=== PATIENT | female | born 1980 | race Caucasian/White ===

== ENCOUNTER 2023-03-22 14:22 | Outpatient (REF) | payer MEDICAID, SELFPAY ==
--- NOTE | ~2023-03-22 | CT_ITS ---
EXAMINATION: CT ABDOMEN AND PELVIS WITH CONTRAST CLINICAL INFORMATION: Right lower quadrant pain. COMPARISON: None available. TECHNIQUE: Multidetector volumetric images were obtained from the superior aspect of the liver through the pubic symphysis following administration 85 mL of Omnipaque 350 intravenous contrast. Sagittal and coronal reformatted images were obtained on the technologist's workstation. Oral contrast: No This CT examination was performed using dose optimization techniques as appropriate, variously including the following: *Automated exposure control *Adjustment of mA and/or kV according to patient size (this includes techniques or standardized protocols for targeted exams where dose is matched to indication/reason for exam; i.e. extremities or head) *Use of iterative reconstruction technique DLP: 368 mGy-cm FINDINGS: LUNG BASES: The visualized lung bases are unremarkable. LIVER, GALLBLADDER, AND BILIARY TREE: The liver is normal in size, shape, and attenuation. No focal hepatic lesion or biliary ductal dilatation is present. The gallbladder is unremarkable with no evidence of radiopaque gallstones, gallbladder wall thickening, or obvious pericholecystic inflammatory changes. PANCREAS: Unremarkable. SPLEEN: Unremarkable. ADRENAL GLANDS: Unremarkable. KIDNEYS AND URETERS: The kidneys are normal in size, shape, and attenuation. 2.3 cm posterior right renal cyst. No further imaging follow-up is needed. No hydronephrosis or perinephric stranding. BLADDER: Unremarkable. GASTROINTESTINAL TRACT: Small hiatal hernia. Small and large bowel loops are of normal caliber. No evidence of small bowel obstruction. ABDOMINAL WALL: Tiny fat-containing umbilical hernia. LYMPH NODES: No bulky abdominal or pelvic lymphadenopathy. VASCULAR: Normal caliber abdominal aorta. PELVIC VISCERA: The uterus and adnexa are unremarkable. OSSEOUS STRUCTURES: No destructive bone lesions. CT/CT abdomen pelvis w IV con IMPRESSION: No acute abnormality in the abdomen or pelvis.
[2023-03-22] MEDS: iohexoL 350 MG/ML 100 ML INFUS..BTL IV (15:21)
== END 2023-03-22 14:23 | disposition home or self-care (01) ==
LOC: HO.CT 14:22
PROVIDERS: Visit Provider Family Medicine
DX: R10.31 Right lower quadrant pain (principal)
CPT/HCPCS: 74177; Q9967

== ENCOUNTER 2023-09-21 11:38 | Outpatient (REF) | payer MEDICAID, SELFPAY | END 2023-09-21 11:39 | disposition home or self-care (01) | LOC: HO.CHCLNP 11:38 | PROVIDERS: Visit Provider Pediatrics | DX: N61.1 Abscess of the breast and nipple (principal); E78.5 Hyperlipidemia, unspecified | CPT/HCPCS: 87070; 87077; 87186; 87205 ==

== ENCOUNTER 2025-03-20 16:28 | Outpatient (REF) | payer MEDICAID, SELFPAY ==
--- OUTSIDE RECORDS SUMMARY | 2025-03-20 16:00 | XMS_ITS | Encounter Summary ---
Author Organization [employer] Address [address] [facility] 7t [place] [address] Care Team Providers Care Heating And Ventilating Tender Name Role Phone Rebeca Panchal MD Primary Care Provider [phone] Reason for Visit * Reason Comments Right lower limb pain Encounter Details Date Type Department Care Team ([facility] st Contact Info) Description 03/20/2025 4:00 PM EDT Office Visit [facility] P[facility]S [address] [place] [address] Tasia Rider MD [address] [place] [address] Right leg pain (Primary Dx) Social History Tobacco Use Types Packs/Day Years Used Date Smoking Tobacco: Never Passive Smoke Exposure: Never Smokeless Tobacco: Never Alcohol Use Standard Drinks/Week Comments Defer 0 (1 standard drink = 0.6 oz pur e alcohol) Depression Answer Date Recorded Patient Health Questionnaire-9 Score 2 10/10/2024 Patient Health Questionnaire-9 Score 2 10/10/2024 Last PHQ-9: Questionnaire Data Not on file 0 10/10/2024 Housing Stability Answer Date Recorded What is your housing situation today? I have sherita tamayo 10/02/[address] you li ve. Do you have problems with any of the following? None of the above 10/02/2024 Food Insecurity Answer Date Recorded Within the past 12 months, y ou worried that your food would run out before you got money to buy more: Never True 10/02/2024 Within the past 12 months,th e food you bought just didn't last and you didn't have enough money to get more: Never True 03/2025 Transportation Answer Date Recorded In the past 12 months, has l ack of transportation kept you from medical appts, meetings, work or from getting things needed for daily living? No 10/02/2024 Utilities Answer Date Recorded In the past 12 months, has t he electric, gas, oil or water company threatened to shut off services in your home? No 10/02/2024 Depression Answer Date Recorded Patient Health Questionnaire-2 Score 0 10/10/2024 Internet Access Answer Date Recorded Internet Access Q1 Yes 10/02/2024 Internet Access Q2 Not on file 10/02/2024 Comments No Sex and Gender Information Value Date Recorded Sex Assigned at Female 04/24/2022 10:18 AM EDT Legal Sex Female 10:18 AM EDT Gender Identity Female 04/24/2022 10:18 AM EDT Sexual Orientation Straight 04/24/2022 10 :18 AM EDT documented as of this encounter Last Filed Vital Signs Vital Sign Reading Time Taken Comments Blood Pressure 102/70 03/20/2025 4:06 PM EDT Pulse 72 03/20/2025 4:06 PM EDT Temperature 36.8 C (98.3 F) 03/20/2025 4:06 PM EDT Respiratory Rate 16 03/20/2025 4:06 PM EDT Oxygen Saturation - - Inhaled Oxygen Concentration - - Weight 78 kg (172 lb) 03/20/2025 4:06 PM EDT Height - - Body Mass Index 28.62 01/23/2025 9:00 AM EDT documented in this encounter Plan of Treatment Scheduled Orders Name Type Priority Associated Diagnoses Orde r Schedule CBC auto differential Lab Routine Right leg pain Expected: 03/20/2025 (Approximate), Expires: 03/20/2026 D Dimer High Sensitivity Lab Routine Right leg pain Expected: 03/20/2025, Expires: 03/20/2026 Basic Metabolic Panel Lab Routine Right leg pain Expected: 03/20/2025 (Approximate), Expires: 03/20/2026 documented as of this encounter Visit Diagnoses Diagnosis Right leg pain- Primary Pain in soft tissues of limb documented in this encounter Additional Health Concerns Assessment Noted Time PHQ-9 Depression Total Score: 2 10/11/19 25 10:14 AM EDT documented as of this encounter Care Teams Heating And Ventilating Tender Relationship Specialty Start Date End Date Rebeca Panchal MD [address] [place] [phone] PCP - General Family Medicine 06/25/18 documented as of this encounter
--- OUTSIDE RECORDS SUMMARY | 2025-03-20 16:31 | XMS_ITS | Patient Health Record ---
Author Organization [facility] Address [address] [place] [id number] Care Team Providers Care Report Writer Name Role Phone Elroy Damon Unavailable [phone] Reason For Referral No Information Plan Of Treatment No Information
--- OUTSIDE RECORDS SUMMARY | 2025-03-20 16:31 | XMS_ITS | Encounter Summary ---
Author Organization [employer] Address [address] [facility] 7t [place] [address] Care Team Providers Care Belt Sander Name Role Phone Rebeca Panchal MD Primary Care Provider [phone] Reason for Visit * Reason Onset Date Comments Med Refill 09/12/2023 Encounter Details Date Type Department Care Team ([facility] st Contact Info) Description 09/12/2023 Telephone [facility] MEDICINE [address] [place] [address] Rebeca Panchal MD [address] [place] [address] Med Refill Social History Tobacco Use Types Packs/Day Years Used Date Smoking Tobacco: Never Passive Smoke Exposure: Never Smokeless Tobacco: Never Alcohol Use Standard Drinks/Week Comments Defer 0 (1 standard drink = 0.6 oz pur e alcohol) Depression Answer Date Recorded Patient Health Questionnaire-9 Score 0 2022 Housing Stability Answer Date Recorded What is your housing situation today? I have sheritanikunj tamayo 04/17/[address] you li ve. Do you have problems with any of the following? None of the above 04/17/2023 Food Insecurity Answer Date Recorded Within the past 12 months, y ou worried that your food would run out before you got money to buy more: Never True 04/17/2023 Within the past 12 months,th e food you bought just didn't last and you didn't have enough money to get more: Never True Transportation Answer Date Recorded In the past 12 months, has l ack of transportation kept you from medical appts, meetings, work or from getting things needed for daily living? No 04/17/2023 Utilities Answer Date Recorded In the past 12 months, has t he electric, gas, oil or water company threatened to shut off services in your home? No 04/17/2023 Depression Answer Date Recorded Patient Health Questionnaire-2 Score 0 2022 Comments Unknown Sex and Gender Information Value Date Recorded Sex Assigned at Female 04/24/2022 10:18 AM EDT Legal Sex Female 10:18 AM EDT Gender Identity Female 04/24/2022 10:18 AM EDT Sexual Orientation Straight 04/24/2022 10 :18 AM EDT documented as of this encounter Miscellaneous Notes * Telephone Encounter - Tessie Rausch - 09/12/2023 8:55 AM EDT TC from pt requesting medication refill. Medications needing refill : Albuterol solution (Bench Loom Weaver don't see med on med list) To be sent to: [facility]/pharmacy #[id number] [place], [place] - [address] [facility] documented in this encounter Plan of Treatment Not on file documented as of this encounter Visit Diagnoses Not on filedocumented in this encounter Additional Health Concerns Assessment Noted Time PHQ-9 Depression Total Score: 0 12/15/19 23 9:26 AM EDT documented as of this encounter Care Teams Belt Sander Relationship Specialty Start Date End Date Rebeca Panchal MD [address] [place] [phone] PCP - General Family Medicine 06/25/18 documented as of this encounter
--- OUTSIDE RECORDS SUMMARY | 2025-03-20 16:31 | XMS_ITS | Clinical Summary ---
Author Organization [employer] Address [address] [facility] 7t [place] [address] Care Team Providers Care Medical Language Specialist Name Role Phone Rebeca Panchal MD Primary Care Provider [phone] Allergies No known active allergies Medications omega-3 1000 MG capsule capsuleIndications :Combined hyperlipidemia TAKE 1 CAPSULE BY MOUTH TWICE A DAY (OTC NOT COVERED) 60 capsule 11 07/27/19 23 Active celecoxib (CeleBREX) 200 MG capsuleIndications :Acute pain of left shoulder TAKE 1 CAPSULE BY MOUTH 2 TIMES DAILY. 60 capsule 3 03/17/20 24 Active cetirizine (ZyrTEC) 10 MG tabletIndications: Mild persistent asthma without complication Take 1 tablet (10 mg) by mouth in the morning. 90 tablet 3 10/11/19 25 Active albuterol (2.5 MG/3ML) 0.083% nebulizer solutionIndication s:Mild persistent asthma without complication Take 3 mL (2.5 mg) by nebulization every 6 (six) hours if needed for wheezing. 75 mL 1 10/11/19 25 026 Active fluticasone (Flonase) 50 MCG/ACT nasal sprayIndications:M ild persistent asthma without complication Administer 1-2 sprays into each nostril Once per day. 16 g 3 10/11/19 25 026 Active ergocalciferol (Vitamin D2) 1.25 MG (49657 UT) capsule Take 1 capsule (1.25 mg) by mouth 1 (one) time per week. 15 capsule 10/20/19 25 Active butalbital-acetami nophen-caffeine 50-325-40 MG tablet take 1 tab every 8 hrs as needed 20 tablet 2 10/24/19 25 Active Ventolin HFA 108 (90 Base) MCG/ACT inhalerIndications :Mild persistent asthma without complication INHALE 1 PUFF EVERY 6 HOURS NEEDED FOR WHEEZE 18 g 1 12/18/19 25 Active ergocalciferol (Vitamin D2) 1.25 MG (94392 UT) capsule Take 1 capsule (1.25 mg) by mouth 1 (one) time per week. 15 capsule 01/14/20 25 Active omega-3 (Fish Oil) 1000 MG capsule Take 1 capsule (1,000 mg) by mouth Once per day. 90 capsule 3 01/14/20 25 Active Active Problems Problem Noted Date Diagnosed Date Mild persistent asthma without complication 05/25 Thyroid nodule 04/29/2019 Migraine 11/12/2012 Encounters Date Type Department Care Team Description 03/20/2025 4:00 PM EDT Office Visit [facility] MED & PEDS [address] [place] [address] Tsaia Rider MD Right leg pain (Primary Dx) 03/20/2025 Travel 03/18/2025 Telephone [facility] MEDICINE [address] [place] [address] Rebeca Panchal MD Nurse Triage 03/03/2025 Telephone [facility] MED & PEDS [address] [place] [address] Rebeca Panchal MD 02/12/2025 Orders Only [facility] MED & PEDS [address] [place] [address] Rebeca Panchal MD Screening for colon cancer (Primary Dx) 01/23/2025 9:00 AM EDT Procedure Visit [facility] [address] [place] [address] Karyna Liu MD Chronic left shoulder pain (Primary Dx) 01/23/2025 Travel 01/13/2025 9:45 AM EDT Office Visit [facility] MED [facility] PEDS [address] [place] [address] Rebeca Panchal MD Dyslipidemia (Primary Dx); Vitamin D deficiency; Screening for colon cancer 01/13/2025 Travel 01/12/2025 Telephone [facility] MED & PEDS [address] [place] [address] Rebeca Panchal MD Chart Prep from Last 3 Months Immunizations Immunization Administration Dates Next Due Hep B, adult 03/19/2008,09/16/2007,07/18/2007 Influenza Whole 06/08/2009 Tdap 04/29/2019,11/14/2009 Social History Tobacco Use Types Packs/Day Years Used Date Smoking Tobacco: Never Passive Smoke Exposure: Never Smokeless Tobacco: Never Tobacco Cessation:Counseling Given: Not Answered Alcohol Use Standard Drinks/Week Comments Defer 0 [...] Orientation Straight 04/24/2022 10 :18 AM EDT Last Filed Vital Signs Vital Sign Reading Time Taken Comments Blood Pressure 102/70 03/20/2025 4:06 PM EDT Pulse 72 03/20/2025 4:06 PM EDT Temperature 36.8 C (98.3 F) 03/20/2025 4:06 PM EDT Respiratory Rate 16 03/20/2025 4:06 PM EDT Oxygen Saturation 98% 01/13/2025 9:46 AM EDT Inhaled Oxygen Concentration - - Weight 78 kg (172 lb) 03/20/2025 4:06 PM EDT Height 165.1 cm (5' 5 ) 01/23/2025 9:00 AM EDT Body Mass Index 28.62 01/23/2025 9:00 AM EDT Plan of Treatment Health Maintenance Due Date Last Done Comments CT Colonography 1978 Colonoscopy 1978 Colorectal Cancer Screening 1978 FIT DNA/Cologuard 1978 FIT 1978 FOBT 1978 HIV Screening 1978 Sigmoidoscopy 1978 Family Planning (PISQ) 1993 Hepatitis C Screening 1996 Pneumococcal Vaccine: Pediatrics (0 to 5 Years) and At-Risk Patients (6 to 49) Years (1 of 2 - PCV) 1997 Pap Smear 12/15/1999 HPV/Cotest 2008 Mammogram 2018 COVID-19 Vaccine ( - 2024-2 6 season) 2025 05/13/2022, 08/17/2021, 09/28/2020 Influenza Vaccine (#1) 2025 06/08/2009 SDOH Screening 10/02/2025 10/02/2024 Alcohol/Substance Use Screening 10/10/2025 10/10/2024 Depression Screening 10/10/2025 10/10/2024, 10/10/2024 Disability Screening 10/10/2025 10/10/2024 Tobacco Screening 01/13/2026 01/13/2025 Cervical Cancer Screening 12/22/2026 Po stponed from 2008 (Other System Reasons) Zoster Vaccines (1 of 2) 2028 DTaP/Tdap/Td Vaccines (3 - T d or Tdap) 04/29/2029 04/29/2019, 11/14/2009 RSV Patients and Patients Aged 60 years or older (1 - 1-dose 75+ series) 2053 Hepatitis B Vaccines Completed 03/19/2008, 09/16/2007, 07/18/2007 HIB Vaccines Aged Out No longer eligi ble based on patient's age to complete this topic HPV Vaccines Aged Out No longer eligi ble based on patient's age to complete this topic Hepatitis A Vaccines Aged Out No long er eligible based on patient's age to complete this topic IPV Vaccines Aged Out No longer eligi ble based on patient's age to complete this topic Meningococcal B Vaccine Aged Out No l onger eligible based on patient's age to complete this topic Meningococcal Vaccine Aged Out No demetria monse eligible based on patient's age to complete this topic RSV under 20 months Aged Out No longe r eligible based on patient's age to complete this topic Rotavirus Vaccines Aged Out No longer eligible based on patient's age to complete this topic Procedures Procedure Name Priority Date/Time Associated Diagnosis Comments [place] ARTHROCENTESIS ASPIR&/INJ MAJOR JT/BURSA W/O US Routine 01/23/2025 9:15 AM EDT Chronic left shoulder pain from Last 3 Months Results * [place] ARTHROCENTESIS ASPIR&/INJ MAJOR JT/BURSA W/O US (01/23/2025 9:15 AM EDT) Narrative Karyna Liu MD - 01/23/2025 9:15 AM EDT Karyna Liu MD 01/23/2025 9:18 AM Arthrocentesis Date/Time: 01/23/2025 9:15 AM Performed by: Karyna Liu MD Authorized by: Karyna Liu MD Consent: Consent obtained: Written Consent given by: Patient Risks, benefits, and alternatives were discussed: yes Risks discussed: Pain Alternatives discussed: Referral Hickman protocol: Procedure explained and questions answered to patient or proxy's satisfaction: yes Relevant documents present and verified: yes Test results available: yes Imaging studies available: yes Required blood products, implants, devices, and special equipment available: yes Site/side marked: yes Immediately prior to procedure, a time out was called: yes Patient identity confirmed: Verbally with patient Location: Location: Shoulder Shoulder: L glenohumeral Anesthesia: Anesthesia method: Topical application Procedure details: Preparation: Patient was prepped and draped in usual sterile fashion Needle gauge: 22 G Ultrasound guidance: no Approach: Posterior Steroid injected: yes Specimen collected: no Post-procedure details: Dressing: Adhesive bandage Procedure completion: Tolerated Karyna Liu MD IN CLINIC/BEDSIDE ORDERABLES Fin al Result from Last 3 Months Insurance C3 GENERIC TPL Care Teams Medical Language Specialist Relationship Specialty Start Date End Date Rebeca Panchal MD [address] [place] [id number] PCP - General Family Medicine 06/25/18
--- OUTSIDE RECORDS SUMMARY | 2025-03-20 16:31 | XMS_ITS | Encounter Summary ---
Author Organization [employer] Address [address] [facility] 7t [place] [address] Care Team Providers Care Exercise Physiologist Certified Name Role Phone Rebeca Panchal MD Primary Care Provider [phone] Reason for Visit * Reason Onset Date Comments Nurse Triage 03/18/2025 Encounter Details Date Type Department Care Team ([facility] st Contact Info) Description 03/18/2025 Telephone [facility] MEDICINE [address] [place] [address] Rebeca Panchal MD [address] [place] [address] Nurse Triage Social History Tobacco Use Types Packs/Day Years [...] encounter Miscellaneous Notes * Telephone Encounter - Nicole Nunn RN - 03/18/2025 1:55 PM EDT called pt to triage, spoke to pt. pt states 2 days duration of pain below the right knee. pt deniesknown injury, significant swelling, calf pain, redness, fever or other associated symptoms. pt states pain is sharp, especially with ROM or weight bearing. given appt Sunday with [facility] provider at 4:00for exam. advised home care: rest, elevate, ice, heat, OTC pain reliever as needed and call back ifworsening or new concerns. pt understands and agrees with plan. insurance verified. Protocol Used: Leg Pain (Adult) Protocol-Based Disposition: See in Office or Video Visit within 3 Days Video visit offer not recorded Positive Triage Question: * Leg pain in shins (front of lower legs) and it occurs with running or jumping exercise (e.g., jogging, basketball) * All higher-acuity triage questions were negative Care Advice Discussed: * Reassurance and Education - Leg Pain * Pain Medicines * Reasons To Call Back - You become worse * Telephone Encounter - Clarice Magaña - 03/18/2025 1:43 PM EDT Symptom: Leg Pain - Not From Injury Outcome: Schedule an urgent appointment (within 1 hour) or talk to a nurse or provider soon Reason: Trouble walking The caller accepted this outcome. Contact pt at [phone] documented in this encounter Plan of Treatment Not on file documented as of this encounter Visit Diagnoses Not on filedocumented in this encounter Additional Health Concerns Assessment Noted Time PHQ-9 Depression Total Score: 2 10/11/19 25 10:14 AM EDT documented as of this encounter Care Teams Exercise Physiologist Certified Relationship Specialty Start Date End Date Rebeca Panchal MD [address] [place] [phone] PCP - General Family Medicine 06/25/18 documented as of this encounter
--- OUTSIDE RECORDS SUMMARY | 2025-03-20 16:31 | XMS_ITS | Encounter Summary ---
Author Organization [employer] Address [address] [facility] [address]t [place] [address] Care Team Providers Care Spiral Binder Name Role Phone Rebeca Panchal MD Primary Care Provider [phone] Encounter Details Date Type Department Care Team (Latest Contact Info) Description 03/20/2025 Travel Social History Tobacco Use Types Packs/Day Years [...] AM EDT documented as of this encounter Plan of Treatment Not on file documented as of this encounter Visit Diagnoses Not on filedocumented in this encounter Additional Health Concerns Assessment Noted Time PHQ-9 Depression Total Score: 2 10/11/19 25 10:14 AM EDT documented as of this encounter Care Teams Spiral Binder Relationship Specialty Start Date End Date Rebeca Panchal MD [address] [place] [id number] PCP - General Family Medicine 06/25/18 documented as of this encounter
--- OUTSIDE RECORDS SUMMARY | 2025-03-20 16:31 | XMS_ITS | Encounter Summary ---
Author Organization [employer] Address [address] [facility] [address] [place] [address] Care Team Providers Care Manager Fire Name Role Phone Rebeca Panchal MD Primary Care Provider [phone] Reason for Visit * Reason Onset Date Comments Referral 12/05/2022 Encounter Details Date Type Department Care Team ([facility] st Contact Info) Description 12/05/2022 Telephone [facility] MED & PEDS [address] [place], [place] [phone] Rebeca Panchal MD [address] [place] [address] Referral Social History Tobacco Use Types Packs/Day Years Used Date Smoking Tobacco: Never Passive Smoke Exposure: Never Smokeless Tobacco: Never Comments Unknown Sex and Gender Information Value Date Recorded Sex Assigned at Female 04/24/2022 10:18 AM EDT Legal Sex Female 10:18 AM EDT Gender Identity Female 04/24/2022 10:18 AM EDT Sexual Orientation Straight 04/24/2022 10 :18 AM EDT documented as of this encounter Miscellaneous Notes * Telephone Encounter - Aurora Puente - 12/05/2022 9:45 AM EDT Tc from patient requesting status on breast surgery referral from 11/01/22. documented in this encounter Plan of Treatment Not on file documented as of this encounter Visit Diagnoses Not on filedocumented in this encounter Care Teams Manager Fire Relationship Specialty Start Date End Date Rebeca Panchal MD [address] [place] [phone] PCP - General Family Medicine 06/25/18 documented as of this encounter
[2025-03-20 18:04] LABS: MANUAL DIFF FLAG NO
[2025-03-20 18:15] LABS: Hematocrit 45.0 % (37.0-47.0); Hemoglobin 15.2 g/dl (12.0-16.0); Imm Gran Abs Auto 0.03 X10*3/uL (0.00-0.03); Imm Gran Pct Auto 0.4 % (0.0-0.4); Lymphocytes Absolute Auto 2.8 X10*3/uL (1.2-4.9); Mean Corpuscular HGB Conc 33.8 g/dl (31.0-35.0); Mean Corpuscular Hemoglobin 27.2 pg (27.0-33.0); Mean Corpuscular Volume 80.5 fL (80.0-98.0); NRBC Abs Auto 0.000 X10*3/uL (0.0-0.012); NRBC Pct Auto 0.0 /100WBC (0.0-0.2); Platelet Count 293 X10*3/uL (160-400); Red Blood Count 5.59 X10*6/uL (4.20-5.50); White Blood Count 8.3 X10*3/uL (4.8-10.8)
[2025-03-20 18:22] LABS: D Dimer High Sensitivity < 150 NG/ML
[2025-03-20 18:41] LABS: Anion Gap 13 (12-20); Blood Urea Nitrogen 16 mg/dL (9-16); Calcium 9.5 mg/dL (8.4-10.2); Carbon Dioxide 28 mmol/L (22-29); Chloride 105 mmol/L (96-108); Estimated Glomerular Filt Rate > 60; Potassium 3.8 mmol/L (3.3-5.1); Sodium 142 mmol/L (135-145)
== END 2025-03-20 16:29 | disposition home or self-care (01) ==
LOC: HO.CHCLDS 16:28
PROVIDERS: Visit Provider Internal Medicine
DX: M79.604 Pain in right leg (principal)
CPT/HCPCS: 36415; 80048; 85025; 85379

== ENCOUNTER 2025-03-20 16:49 | Outpatient (REF) | payer MEDICAID, SELFPAY ==
--- NOTE | ~2025-03-20 | US_ITS ---
EXAMINATION: US TRIPLEX LOWER EXTREMITY, RIGHT CLINICAL INFORMATION: Right leg pain COMPARISON: None available. TECHNIQUE: Color-flow triplex imaging with spectral analysis and compression Doppler were performed on the right lower extremity. FINDINGS: Respiratory variation, normal compression and augmented flow are noted throughout the right lower extremity. The visualized common femoral vein, superficial femoral vein, profunda femoral vein, popliteal vein and midcalf peroneal and posterior tibial venous segments show no evidence of deep venous thrombosis. US/US venous duplex LE RT IMPRESSION: No evidence of deep venous thrombosis involving the right lower extremity. Electronically signed by: Arsenio Ray MD 03/20/2025 05:19 PM EDT
== END 2025-03-20 16:50 | disposition home or self-care (01) ==
LOC: HO.US 16:49
PROVIDERS: PCP Pediatrics; Visit Provider Internal Medicine
DX: M79.604 Pain in right leg (principal)
CPT/HCPCS: 93971

== ENCOUNTER → 2025-03-20 17:01 | Outpatient (BNV) | payer MEDICAID, SELFPAY | PROVIDERS: PCP Pediatrics; Visit Provider Radiology Diagnostic Radiology | DX: M79.604 Pain in right leg (principal) | CPT/HCPCS: 93971 ==